=== PATIENT | male | born 1975 | race Caucasian/White ===

== ENCOUNTER → 2019-07-21 | Outpatient (CLI) | payer OTHER ==
--- NOTE | 2019-07-21 16:45 | US ---
EXAMINATION TYPE: US pelvic limited DATE OF EXAM: 07/21/2019 COMPARISON: NONE CLINICAL HISTORY: R10.2 PELVIC AND PERINEAL PAIN. Patient states having ML pelvic pain. Patient stat es it is uncomfortable when he bends over. Area of pain scanned. Possible prominent loop of bowel visualized in midline pelvic region. IMPRESSION: 1. There is a prominent loop which may be of bowel. No peristalsis was evident. Consider ileus. Consi pamela plain film correlation.
== END | disposition home or self-care (01) ==
LOC: RADUSWWP 16:01
PROVIDERS: ATTEND Family Medicine
DX: R10.2 Pelvic and perineal pain (principal)
CPT/HCPCS: 76857

== ENCOUNTER → 2020-10-27 | Outpatient (CLI) | payer OTHER ==
--- NOTE | 2020-10-27 13:42 | CT ---
EXAMINATION TYPE: CT abdomen pelvis wo con DATE OF EXAM: 10/27/2020 COMPARISON: None INDICATION: Left sided pain with hematuria DLP: 707 mGycm, Automated exposure control for dose reduction was used. CONTRAST: 0 mL of Isovue 300. Study performed without Oral Contrast TECHNIQUE: Axial images were obtained from above the diaphragm to the pubic rami in the axial plane a t 5 mm thick sections. Reconstructed images are reviewed on the computer in the coronal plane. FINDINGS: Limited CT sections are obtained the lung bases. The lung bases are clear. CT ABDOMEN: Liver: Normal Spleen: Normal Pancreas: Normal Adrenal glands: There is fullness of the left adrenal gland estimated at 1.4 cm. Right adrenal gland appears normal. Gallbladder: Normal Kidneys: No masses are evident. No hydronephrosis is present. No cysts are present. Delayed images were obtained through the kidneys, which remain unremarkable. Aorta: Vascular calcification is within the aorta. Inferior vena cava: The inferior vena cava is to the left of the aorta but transposed is to the right at the level of the Liver. CT PELVIS: Study is performed without oral contrast. There are are multiple diverticuli within the sigmoid colon region. Some inflammatory changes adjacent. Mild diverticulitis at the level of the sigmoid colon sh ould be considered. Correlate with location of the patient's pain. Anterior to the acute diverticulit is is appears to be a redundant loop of sigmoid. No definite abscess is identified at this time. No f ree air is evident. Appendix: Normal as visualized. Urinary bladder: Urinary bladder is decompressed and has limited evaluation Genitourinary structures: Prostate appears normal Osseous structures: No suspicious lytic or sclerotic lesions. IMPRESSIONS: 1. Acute diverticulitis sigmoid colon. 2. Slight prominence of the left adrenal gland may be related to an adenoma. This could be monitored.
== END | disposition home or self-care (01) ==
LOC: RADCTMAIN 12:46
PROVIDERS: ATTEND Nurse Practitioner Family
DX: K57.32 Diverticulitis of large intestine without perforation or abscess without bleeding (principal)
CPT/HCPCS: 74176